=== PATIENT | female | born 1930 | race Caucasian/White ===

== ENCOUNTER 2017-01-10 10:50 | Inpatient (IN) | payer MEDICARE, OTHER ==
[2017-01-10] MEDS ORDERED: Sodium Chloride 0.9% 1000 ML 1,000 ML ONE (10:59)
[2017-01-10] MEDS ORDERED: Sodium Chloride 0.9% 1000 ML 1,000 ML IV STA (11:03)
[2017-01-10 11:23] LABS: INR 1.3 (0.8-3.0); PROTIME 14.4 SECONDS (9.95-12.35)
[2017-01-10 11:24] LABS: Mean Corpuscular Hemoglobin 31.5 pg (26-32); Mean Platelet Volume 10.3 fl (6-9.5); Platelet Count 132 K/mm3 (150-450); Red Blood Count 5.71 M/mm3 (4.1-5.4); Red Cell Distribution Width 15.7 % (11.5-14.0); White Blood Count 7.8 K/mm3 (4.0-10.5)
--- NOTE | 2017-01-10 11:25 | ERPHSYRPT ---
- History of Present Illness Time Seen by Provider: 01/10/17 10:58 Source: EMS, [facility] records Exam Limitations: clinical condition Patient Subjective Stated Complaint: pt arrived per ambulance for hypotension this morning, and altered mental status,,bs was 150 today, pt alert but is sleepy, she states she feels like shes fading away, pt is a DNR. Triage Nursing Assessment: pt alert and moaning which is normal for her, resp easy, chest clear, and soft,moves all ext Physician History: PATIENT WITH HISTORY OF DEMENTIA, CVA, HYPERTENSION, TYPE 2 DIABETES, CORONARY ARTERY DISEASE, AND CONGESTIVE HEART FAILURE WAS FOUND BY [facility] STAFF TRANSIENT LOSS OF CONSCIOUSNESS WITH LOW BLOOD PRESSURE AFTER RECEIVING HER MORNING HYPERTENSIVE MEDICATIONS. PATIENT DENIES CHEST PAIN, DYSPNEA OR HEADACHE. Timing/Duration: today Severity: moderate Character of Deficits: other (TRANSIENT UNRESPONSIVE) Baseline/Normal Cognition: alert but confused Current Cognition: alert but confused Associated Symptoms: confusion Allergies/Adverse Reactions: atorvastatin calcium [From Lipitor] Allergy (Severe, Verified 01/10/17 11:04) insulin aspart [From Novolog] Adverse Reaction (Severe, Verified 01/10/17 11:04) other Pt stated that her doctor advised her to only take Novolin. acetaminophen [From Tylenol] Adverse Reaction (Verified 01/10/17 11:04) ibuprofen Adverse Reaction (Verified 01/10/17 11:04) Home Medications: Aspirin [Aspirin EC] 81 mg PO HS 01/07/15 [History] Isosorbide Mononitrate 30 mg [Imdur 30 MG] 30 mg PO BID 01/07/15 [History] Levothyroxine Sodium 50 Mcg [Synthroid 50 Mcg] 50 mcg PO DAILY 01/07/15 [ History] Metoprolol Tartrate 25 mg [Lopressor 25MG Tab] 25 mg PO BID 01/07/15 [ History] Sennosides [Senna Laxative] 1 - 2 tab PO DAILY PRN 01/07/15 [History] NPH, Human Insulin Isophane [Humulin N] 25 unit SQ BREAKFAST 01/30/15 [History] NPH, Human Insulin Isophane [Humulin N] 27 units SQ HS 01/30/15 [History] Nitroglycerin 0.4 mg Tablet [Nitrostat 0.4 MG Tablet] 0.4 mg SL Q5MIN PRN MR X 3 PRN 06/20/15 [History] Furosemide 40 mg PO DAILY 10/02/15 [History] Potassium Chloride 10 Meq Tab* [Klor Con 10 MEQ] 20 meq PO TID 05/11/16 [ History] Hx Tetanus, Diphtheria Vaccination/Date Given: Yes Hx Influenza Vaccination/Date Given: Yes Hx Pneumococcal Vaccination/Date Given: Yes Immunizations Up to Date: Yes - Review of Systems Constitutional: Lethargy, Weakness, No Fever, No Chills Eyes: No Symptoms Ears, Nose, & Throat: No Symptoms Respiratory: No Symptoms, No Cough, No Dyspnea Cardiac: No Symptoms, No Chest Pain, No Edema, No Syncope Abdominal/Gastrointestinal: No Symptoms, No Abdominal Pain, No Nausea, No Vomiting, No Diarrhea Genitourinary Symptoms: No Symptoms, No Dysuria Musculoskeletal: No Symptoms, No Back Pain, No Neck Pain Skin: No Symptoms, No Rash Neurological: Lethargy, Other (ALTERED MENTAL STATUS), No Dizziness, No Focal Weakness, No Sensory Changes Psychological: No Symptoms Endocrine: No Symptoms All Other Systems: Reviewed and Negative - Past Medical History Pertinent Past Medical History: Yes Neurological History: Dementia, Stroke ENT History: Cataracts Cardiac History: Congestive Heart Failure, Coronary Artery Disease, Hypertension , Myocardial Infarction ([place]) Respiratory History: Bronchitis, Pneumonia Endocrine Medical History: Diabetes Type II, Hypothyroidism Musculoskeletal History: Arthritis, Fractures, Osteoarthritis GI Medical History: Gallbladder Disease History: No Pertinent History Psycho-Social History: Anxiety Female Reproductive Disorders: No Pertinent History Other Medical History: cardiac stent. HX LOW POTASSIUM AND LOW MAG - Past Surgical History Past Surgical History: Yes Neuro Surgical History: Other Cardiac: Cardiac Stent Respiratory: No Pertinent History Gastrointestinal: Cholecystectomy Genitourinary: No Pertinent History Musculoskeletal: Orthopedic Surgery Female Surgical History: No Pertinent History Other Surgical History: brain surgery - Social History Smoking Status: Never smoker Exposure to second hand smoke: No Drug Use: none Patient Lives Alone: No - Female History Hx Last Menstrual Period: post Hx Now: No - Nursing Vital Signs Nursing Vital Signs: Initial Vital Signs Temperature 97.0 F Temperature Source Oral Pulse Rate 52 Respiratory Rate 20 Blood Pressure [] 120/26 Pain Intensity 0 - Sara Coma Scale Best Eye Response (Sara): (4) open spontaneously Best Verbal Response ([facility]): (4) confused conversation Best Motor Response (Sara): (6) obeys commands [facility] Total: 14 - Physical Exam General Appearance: no apparent distress, lethargy (SLIGHT LETHARGIC) Eye Exam: bilateral eye: PERRL, EOMI Ears, Nose, Throat Exam: normal ENT inspection, moist mucous membranes Neck Exam: normal inspection, non-tender, supple Respiratory: normal breath sounds, lungs clear, airway intact, No respiratory distress Cardiovascular: regular rate/rhythm, bradycardia, No edema Gastrointestinal: soft, normal bowel sounds, No tenderness, No distention Back Exam: normal inspection Extremity Exam: normal inspection, No pedal edema Peripheral Pulses: carotid (R): 2+, carotid (L): 2+, femoral (R): 2+, femoral (L ): 2+, dorsalis-pedis (R): 2+, dorsalis-pedis (L): 2+ Mental Status: alert, 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: tongue midline Coordination/Gait: normal finger to nose DTR: bicep (R): 2+, bicep (L): 2+, tricep (R): 2+, tricep (L): 2+, knee (R): 2+ Skin Exam: normal color, warm, dry, No rash SpO2 Interpretation: normal SpO2: 99 Oxygen Delivery: Room Air - Course EKG Interpreted by Me: RATE, Sinus Rhythm, Sinus Anam, Left [place] Deviation - Radiology Exams Chest X-ray Interpretation: Discussed w/ radiologist (NONACUTE UNDERINFLATED CHEST) - CT Exams Head CT Interpretation: Discussed w/radiologist (KASHIF SENILE BRAIN) Ordered Tests: Active Orders 24 hr Category Date Time Status Bedrest ROUTINE Activity 01/10/17 13:36 Ordered Admission/Status Order ROUTINE Care 01/10/17 13:35 Ordered Call Admit Doctor for Orders ON ADMISSION Care 01/10/17 13:36 Ordered Oncology Nurse Navigator STAT Care 01/10/17 11:03 Active Cath [Catheter-[place]] STAT Care 01/10/17 11:16 Active Code Status Order ROUTINE Care 01/10/17 13:35 Ordered EKG-ER Only STAT Care 01/10/17 11:03 Active IV Care Q6H Care 01/10/17 13:35 Ordered IV Insertion STAT Care 01/10/17 11:03 Active IV Insertion-2nd Peripheral STAT Care 01/10/17 11:16 Active Neuro Checks Q4H Care 01/10/17 13:34 Ordered Oxygen-ED Only NASAL CANNULA 2 lpm Care 01/10/17 11:03 Active Pulse Oximetry (ED) STAT Care 01/10/17 11:03 Active Vital Signs Q4H Care 01/10/17 13:34 Ordered Cardiac Diet Diet 01/10/17 Dinner Ordered CHEST 1 VIEW (PORTABLE) Stat Exams 01/10/17 11:04 Completed HEAD WITHOUT CONTRAST [CT] Stat Exams 01/10/17 11:15 Completed BLOOD CULTURE Stat Lab 01/10/17 11:00 Received CBC W DIFF Stat Lab 01/10/17 11:00 Completed CMP Stat Lab 01/10/17 11:00 Completed MAGNESIUM Stat Lab 01/10/17 11:00 Completed Manual Differential NC Stat Lab 01/10/17 11:00 Completed NT PRO BNP Stat Lab 01/10/17 11:00 Completed PROTIME WITH INR Stat Lab 01/10/17 11:00 Completed TROPONIN Q3H Lab 01/10/17 11:00 Completed TROPONIN Q3H Lab 01/10/17 14:15 Ordered TROPONIN Q3H Lab 01/10/17 17:15 Ordered TROPONIN Q3H Lab 01/10/17 20:15 Ordered TROPONIN Q3H Lab 01/10/17 23:15 Ordered UA Stat Lab 01/10/17 13:23 Ordered UA Stat Lab 01/10/17 13:43 Ordered Oxygen NASAL CANNULA 2 lpm RT 01/10/17 13:34 Ordered Transfer Order Routine Transfer 01/10/17 13:34 Ordered Medication Summary Discontinued Medications Generic Name Dose Route Start Last Admin Trade Name Brightq PRN Reason Stop Dose Admin Calcium Chloride 1,000 mg 01/10/17 11:57 01/10/17 12:30 Calcium Chloride 10% 1000 Mg IV 01/10/17 11:58 Not Given STAT ONE Calcium Chloride Confirm 01/10/17 12:16 Calcium Chloride 10% 1000 Mg Administered 01/10/17 12:17 Dose 1,000 mg .ROUTE .STK-MED ONE Sodium Chloride Confirm 01/10/17 10:59 Sodium Chloride 0.9% 1000 Ml Administered 01/10/17 11:00 Dose 1,000 mls @ ud .ROUTE .STK-MED ONE Sodium Chloride 1,000 mls @ 999 mls/hr 01/10/17 11:03 01/10/17 11:16 Sodium Chloride 0.9% 1000 Ml IV 01/10/17 12:03 999 mls/hr .Q1H1M STA Administration Calcium Chloride 1,000 mg/ 60 mls @ 240 mls/hr 01/10/17 12:30 01/10/17 12:30 Sodium Chloride IV 01/10/17 12:44 240 mls/hr STAT ONE Administration Sodium Polystyrene Sulfonate 30 g 01/10/17 11:56 01/10/17 12:30 Kayexylate 15 Gm/60 Ml PO 01/10/17 11:57 30 g STAT ONE Administration Lab/Rad Data: Laboratory Result Diagrams 01/10/17 11:00 01/10/17 11:00 Laboratory Results 01/10/17 01/10/17 01/10/17 Range/Units 11:00 11:00 11:00 WBC (4.0-10.5) K/mm3 RBC (4.1-5.4) M/mm3 Hgb (12.0-16.0) gm/dl Hct (35-47) % MCV (78-100) fl MCH (26-32) pg MCHC (32-36) g/dl RDW (11.5-14.0) % Plt Count (150-450) K/mm3 MPV (6-9.5) fl Segmented Neutrophils (36.0-66.0) % Band Neutrophils (0.0-2.0) % Lymphocytes (Manual) (24-44) % Monocytes (Manual) (0.0-12.0) % Platelet Estimate (NORMAL) Poikilocytosis Anisocytosis INR 1.30 (0.8-3.0) Sodium 132 L (136-145) mEq/L Potassium 5.9 H (3.5-5.1) mEq/L Chloride 96 L (98-107) mEq/L Carbon Dioxide 25.5 (21-32) mEq/L Anion Gap 15.9 H (5-15) MEQ/L BUN 27 H (9-20) mg/dL Creatinine 3.15 H (0.55-1.30) mg/dl Estimated GFR 15 ML/MIN Glucose 171 H (70-110) MG/DL Calcium 9.8 (8.5-10.1) mg/dL Magnesium 2.3 (1.8-2.4) mg/dL Total Bilirubin 0.7 (0.2-1.0) mg/dL AST 36 (15-37) U/L ALT 21 (12-78) U/L Alkaline Phosphatase 70 (46-116) U/L Troponin I 0.030 (0.000-0.056) ng/ml NT-Pro-B Natriuret Pep 514 H (0-450) pg/ml Serum Total Protein 7.6 (6.4-8.2) gm/dL Albumin 3.7 (3.4-5.0) g/dL 01/10/17 Range/Units 11:00 WBC 7.8 (4.0-10.5) K/mm3 RBC 5.71 H (4.1-5.4) M/mm3 Hgb 18.0 H (12.0-16.0) gm/dl Hct 54.8 H (35-47) % MCV 96.0 (78-100) fl MCH 31.5 (26-32) pg MCHC 32.8 (32-36) g/dl RDW 15.7 H (11.5-14.0) % Plt Count 132 L (150-450) K/mm3 MPV 10.3 H (6-9.5) fl Segmented Neutrophils 72 H (36.0-66.0) % Band Neutrophils 1 (0.0-2.0) % Lymphocytes (Manual) 21 L (24-44) % Monocytes (Manual) 6 (0.0-12.0) % Platelet Estimate NORMAL (NORMAL) Poikilocytosis 1+ Anisocytosis 1+ INR (0.8-3.0) Sodium (136-145) mEq/L Potassium (3.5-5.1) mEq/L Chloride (98-107) mEq/L Carbon Dioxide (21-32) mEq/L Anion Gap (5-15) MEQ/L BUN (9-20) mg/dL Creatinine (0.55-1.30) mg/dl Estimated GFR ML/MIN Glucose (70-110) MG/DL Calcium (8.5-10.1) mg/dL Magnesium (1.8-2.4) mg/dL Total Bilirubin (0.2-1.0) mg/dL AST (15-37) U/L ALT (12-78) U/L Alkaline Phosphatase (46-116) U/L Troponin I (0.000-0.056) ng/ml NT-Pro-B Natriuret Pep (0-450) pg/ml Serum Total Protein (6.4-8.2) gm/dL Albumin (3.4-5.0) g/dL - Progress Progress Note: 01/10/17 11:28 PATIENT GIVEN BOLUS NORMAL 1 LITER OVER 1 HOUR FOR SPB 62/36, IMPROVED TO BP 90 /46, ADMINISTERED KAYEXYLATE 15GM ORALLY, AND CALCIUM CHLORIDE 1GM IVPB OVER 30MIN 01/10/17 12:25 01/10/17 12:28 Discussed with : Noman (DISCUSSED WITH DR MERCHANT AT 1330 FOR ADMISSION) - Departure Time of Disposition: 13:35 Departure Disposition: In-patient Admission Clinical Impression: HYPERKALEMIA, HYPOTENSION, DEHYDRATION, ALTERED MENTAL STATUS, URINARY TRACT INFECTION Condition: Stable Critical Care Time: No Referrals: MERRITT MERCHANT MD [Primary Care Provider] -
[2017-01-10 11:36] LABS: BAND 1 % (0.0-2.0); Total Cells Counted 100
[2017-01-10 11:37] LABS: ANISOCYTOSIS 1+; Platelet Estimate NORMAL (NORMAL); Poikilocytosis 1+
[2017-01-10 11:41] LABS: ALBUMIN 3.7 g/dL (3.4-5.0); ANION GAP 15.9 MEQ/L (5-15); BILIRUBIN,TOTAL 0.7 mg/dL (0.2-1.0); Carbon Dioxide 25.5 mEq/L (21-32); MAGNESIUM 2.3 mg/dL (1.8-2.4); Potassium 5.9 mEq/L (3.5-5.1); Total Protein 7.6 gm/dL (6.4-8.2)
[2017-01-10] MEDS ORDERED: Kayexylate 15 GM/60 ML PO ONE (11:56)
[2017-01-10] MEDS ORDERED: CALCIUM CHLORIDE 10% 1000 MG IV ONE (11:57)
--- NOTE | 2017-01-10 11:57 | XRAY ---
Indication: Cough. Comparison: November 17, 2016. Portable chest less inflated today again without focal infiltrate, consolidation, or large effusion. Heart within normal limits for AP portable technique. Bony thorax intact again with osteopenia, degenerative changes, and partially visualized left humeral hardware. Impression: Nonacute underinflated chest.
--- NOTE | 2017-01-10 12:04 | XRAY ---
Indication: Transient unresponsiveness. Multiple contiguous axial images obtained through the head without contrast. Comparison: July 19, 2015. Stable age-appropriate global atrophy and minimal periventricular degenerative micro-ischemia. No acute intracranial hemorrhage, abnormal extra-axial fluid collection, or mass effect. Fourth ventricle is midline without hydrocephalus. Kaminski-white matter differentiation maintained. Osseous structures intact. Visualized paranasal sinuses and mastoid air cells are clear. Impression: Stable nonacute senile brain. CTDI 67.60
[2017-01-10] MEDS ORDERED: CALCIUM CHLORIDE 10% 1000 MG ONE (12:16)
[2017-01-10] MEDS ORDERED: CALCIUM CHLORIDE IV ONE (12:30)
[2017-01-10] MEDS ORDERED: SODIUM CHLORIDE 0.9% IV ONE (12:30)
[2017-01-10] MEDS ORDERED: Sodium Chloride 0.9% 1000 ML 1,000 ML IV SCH (13:45)
[2017-01-10] MEDS ORDERED: ROCEPHIN 1 Gm-D5w 50 ml Bag** 50 ML IV ONE ×2 (13:46→13:47)
[2017-01-10 14:01] LABS: Collection Type CLEAN CATCH
[2017-01-10 14:02] LABS: Bacteria MODERATE /HPF (NEGATIVE); COMPLETE URINE MICROSCOPIC? YES; Epithelial Cells FEW /HPF (FEW)
[2017-01-10] MEDS: Sodium Chloride 0.9% 1000 ML 1,000 ML IV SCH (15:11)
--- NOTE | 2017-01-10 16:57 | PCM.HP ---
History of Present Illness - Chief Complaint Chief Complaint: AMS, hyperkalemia, hypotension, dehydration History of Present Illness: is a 86 year old female who was brought from [facility] this am for decreased blood pressure and altered mental status, she was apparently difficult to arouse. She reports she is chronically in pain and feels terrible all the time, she is very confused and paranoid at her baseline. she has no specific complaints, is conversant today. - Review of Systems Constitutional: No Fever, No Chills Respiratory: No Cough, No Short Of Breath Cardiac: No Chest Pain, No Edema, No Syncope Abdominal/Gastrointestinal: Abdominal Pain Skin: No Rash All Other Systems: Reviewed and Negative Medications & Allergies Home Medications: Home Medication List Aspirin [Aspirin EC] 81 mg PO DAILY 01/07/15 [History Confirmed 01/10/17] Isosorbide Mononitrate 30 mg [Imdur 30 MG] 30 mg PO BID 01/07/15 [History Confirmed 01/10/17] Levothyroxine Sodium 50 Mcg [Synthroid 50 Mcg] 50 mcg PO DAILY 01/07/15 [ History Confirmed 01/10/17] Metoprolol Tartrate 25 mg [Lopressor 25MG Tab] 25 mg PO BID 01/07/15 [ History Confirmed 01/10/17] NPH, Human Insulin Isophane [Humulin N] 27 unit SQ BID 01/30/15 [History Confirmed 01/10/17] Furosemide 40 mg PO DAILY 10/02/15 [History Confirmed 01/10/17] Potassium Chloride 10 Meq Tab* [Klor Con 10 MEQ] 30 meq PO DAILY 05/11/16 [ History Confirmed 01/10/17] Calcium Carbonate/Vitamin D3 [Calcium 600 + Vit D 400 Tablet] 1 mg PO BID [History Confirmed 01/10/17] Dextrose 4 gm Tablet [Dex4 Glucose 4 GM TABLET] 1 each PO DAILY PRN PRN [History Confirmed 01/10/17] Diclofenac Sodium Gel [Voltaren GEL] 100 gm TP QID 01/10/17 [History Confirmed 01/10/17] Docusate Sodium 100 mg [Colace 100 MG] 100 mg PO DAILY PRN PRN 01/10/17 [ History Confirmed 01/10/17] Glucagon 1 mg [GlucaGen 1 MG] 1 mg IJ DAILY PRN PRN 01/10/17 [History Confirmed 01/10/17] Magnesium Hydroxide 30 ml [Milk of Magnesia 30 ml] 30 ml PO DAILY PRN PRN 01/10/17 [History Confirmed 01/10/17] Na Phos,M-B/Na Phos,Di-Ba [Fleet Enema] 133 ml RC DAILY PRN PRN 01/10/17 [ History Confirmed 01/10/17] Nystatin Cream 30 gm [Nystop 30 gm Cream] 30 gm TP DAILY 01/10/17 [ History Confirmed 01/10/17] Omeprazole 20 MG [Prilosec 20 mg] 20 mg PO DAILY 01/10/17 [History Confirmed ] Potassium Chloride 10 Meq Tab* [Klor Con 10 MEQ] 20 meq PO BID 01/10/17 [ History Confirmed 01/10/17] Spironolactone 25 mg [Aldactone 25 MG] 50 mg PO DAILY 01/10/17 [History Confirmed 01/10/17] Triamcinolone 0.1% Cream [Kenalog 0.1% Cream 15 gm] 15 gm TP BID PRN 01/10 [History Confirmed 01/10/17] Triamterene/Hydrochlorothiazid [Maxzide 37.5 mg-25 mg Tablet] 1 each PO DAILY [History Confirmed 01/10/17] Allergies/Adverse Reactions: Allergies Allergy/AdvReac Type Severity Reaction Status Date / Time atorvastatin calcium Allergy Severe Verified 01/10/17 11:04 [From Lipitor] insulin aspart [From Novolog] AdvReac Severe other Verified 01/10/17 11:04 acetaminophen [From Tylenol] AdvReac Verified 01/10/17 11:04 ibuprofen AdvReac Verified 01/10/17 11:04 - Past Medical History Past Medical History: Yes Neurological History: Dementia, Stroke ENT History: Cataracts Cardiac History: Congestive Heart Failure, Coronary Artery Disease, Hypertension , Myocardial Infarction ([place]) Respiratory History: Bronchitis, CHF, Pneumonia Endocrine Medical History: Diabetes Type II, Hypothyroidism Musculoskelatal History: Arthritis, Fractures, Osteoarthritis GI Medical History: Gallbladder Disease History: No Pertinent History Pyscho-Social History: Anxiety Reproductive Disorders: No Pertinent History Comment: cardiac stent. HX LOW POTASSIUM AND LOW MAG - Female History Hx Last Menstrual Period: post Are you now?: No - Past Surgical History Past Surgical History: Yes Neuro Surgical History: Other Cardiac History: Cardiac Stent Respiratory Surgery: No Pertinent History GI Surgical History: Cholecystectomy Genitourinary Surgical Hx: No Pertinent History Musculskeletal Surgical Hx: Orthopedic Surgery Female Surgical History: No Pertinent History Other Surgical History: brain surgery - Social History Smoking Status: Never smoker Exposure to second hand smoke: No Alcohol: None Drug Use: none - Physical Exam Vital Signs: Vital Signs - 24 hr Temp Pulse Resp BP Pulse Ox 01/10/17 15:37 97.0 F 54 L 125/53 95 01/10/17 14:53 97.0 F 54 L 125/53 95 01/10/17 14:24 97.0 F 54 L 125/53 95 01/10/17 13:49 99 01/10/17 13:45 56 L 18 120/60 97 01/10/17 13:44 52 L 20 120/26 97 01/10/17 12:58 57 L 16 100/60 96 01/10/17 11:52 65 16 82/36 94 L 01/10/17 11:00 99 01/10/17 10:52 97.0 F 51 L 14 62/36 99 Oxygen-Last 24 hours O2 Percentage 2 Liters = 28% O2 Percentage 2 Liters = 28% O2 Percentage 2 Liters = 28% General Appearance: no apparent distress, alert Neurologic Exam: alert, No motor deficits Respiratory Exam: normal breath sounds Cardiovascular Exam: regular rate/rhythm, normal heart sounds, normal peripheral pulses Gastrointestinal/Abdomen Exam: soft, normal bowel sounds, No tenderness, No mass Extremity Exam: normal inspection, normal range of motion, pelvis stable Skin Exam: normal color, warm, dry, No rash Results - Labs Lab/Micro Results: Lab Results-Last 24 Hours 01/10/17 Range/Units 15:02 Troponin I 0.028 (0.000-0.056) ng/ml Assessment/Plan (1) Hypotension Current Visit: Yes Status: Acute Assessment & Plan: resolved at this time Code(s): I95.9 - HYPOTENSION, UNSPECIFIED (2) Altered mental status Current Visit: Yes Status: Acute Assessment & Plan: stable at this time Code(s): R41.82 - ALTERED MENTAL STATUS, UNSPECIFIED
[2017-01-10] MEDS ORDERED: Colace 100 MG PO PRN (18:05)
[2017-01-10] MEDS ORDERED: Kayexylate 15 GM/60 ML RC SCH (20:00)
[2017-01-10] MEDS: Kayexylate 15 GM/60 ML RC SCH (20:45)
[2017-01-10] MEDS: Voltaren GEL TP SCH (21:41)
[2017-01-11] MEDS: Sodium Chloride 0.9% 1000 ML 1,000 ML IV SCH ×2 (01:17→14:50)
[2017-01-11] MEDS ORDERED: Kayexylate 15 GM/60 ML PO SCH (05:00)
[2017-01-11] MEDS: Kayexylate 15 GM/60 ML RC SCH (05:20)
[2017-01-11 08:22] LABS: ANION GAP 18.8 MEQ/L (5-15); Carbon Dioxide 20.1 mEq/L (21-32); Potassium 5.6 mEq/L (3.5-5.1)
[2017-01-11] MEDS: Novolin N SQ SCH ×2 (08:33→17:03)
--- NOTE | 2017-01-11 08:40 | PCM.NOTE ---
Date and Time: 01/11/17 0835 Subjective Assessment: She says she feels "terrible," knows the month and year but confused about where she is. States she's never seen Dr. Tineo (he saw the pt yesterday). states she can't eat the fruit plate in front of her due to she can't chew. - Review of Systems Constitutional: No Fever Abdominal/Gastrointestinal: Abdominal Pain Objective Exam General Appearance: no apparent distress Neurologic Exam: alert, other (cooperates with some assistance) Skin Exam: normal color, warm, dry Respiratory Exam: normal breath sounds, lungs clear, No crackles/rales, No rhonchi, No wheezing Cardiovascular Exam: regular rate/rhythm, normal heart sounds, No murmur Gastrointestinal/Abdomen Exam: soft, normal bowel sounds, tenderness (throughout ), No guarding, No rebound Extremity Exam: No pedal edema, No swelling OBJECTIVE DATA Vital Signs: Vital Signs - 24 hr Temp Pulse Resp BP Pulse Ox 01/11/17 07:42 98.1 F 77 19 108/51 97 01/11/17 04:00 19 01/11/17 01:00 97.5 F 68 20 111/52 96 01/11/17 00:00 18 01/10/17 21:00 97.3 F 70 20 128/58 96 01/10/17 20:00 20 01/10/17 17:01 97.6 F 56 L 18 113/56 96 01/10/17 15:37 97.0 F 54 L 125/53 95 01/10/17 14:53 97.0 F 54 L 125/53 95 01/10/17 14:24 97.0 F 54 L 125/53 95 01/10/17 13:49 99 01/10/17 13:45 56 L 18 120/60 97 01/10/17 13:44 52 L 20 120/26 97 01/10/17 12:58 57 L 16 100/60 96 01/10/17 11:52 65 16 82/36 94 L 01/10/17 11:00 99 01/10/17 10:52 97.0 F 51 L 14 62/36 99 Oxygen-Last 24 hours O2 Percentage 2 Liters = 28% O2 Percentage 2 Liters = 28% O2 Percentage 2 Liters = 28% Pain Assessment - Last Documented Pain Intensity 0 Pain Scale Used FLACC Intake and Output: Intake & Output 01/08/17 01/09/17 01/10/17 01/11/17 11:59 11:59 11:59 11:59 Intake Total 1984 Balance 1984 Weight 79.651 kg Lab Results: Accuchecks Date 01/10/17 Time 22:00 Accucheck Value: 211 Lab Results-Last 24 Hours 01/10/17 01/10/17 01/10/17 Range/Units 15:02 17:26 20:13 Sodium (136-145) mEq/L Potassium (3.5-5.1) mEq/L Chloride (98-107) mEq/L Carbon Dioxide (21-32) mEq/L Anion Gap (5-15) MEQ/L BUN (9-20) mg/dL Creatinine (0.55-1.30) mg/dl Estimated GFR ML/MIN Glucose (70-110) MG/DL Calcium (8.5-10.1) mg/dL Troponin I 0.028 0.030 < 0.017 (0.000-0.056) ng/ml 01/10/17 01/11/17 01/11/17 Range/Units 23:17 05:13 05:15 Sodium 135 L (136-145) mEq/L Potassium 5.5 H 5.6 H (3.5-5.1) mEq/L Chloride 102 (98-107) mEq/L Carbon Dioxide 20.1 L (21-32) mEq/L Anion Gap 18.8 H (5-15) MEQ/L BUN 35 H (9-20) mg/dL Creatinine 3.42 H (0.55-1.30) mg/dl Estimated GFR 13 ML/MIN Glucose 201 H (70-110) MG/DL Calcium 9.2 (8.5-10.1) mg/dL Troponin I 0.018 (0.000-0.056) ng/ml Assessment/Plan (1) Renal failure Current Visit: Yes Status: Acute Assessment & Plan: in early 2015 her renal function was fairly normal, Cr nl with eGFR aroudn 50. Currently creatinine over 3 and eGFR 13. Will search for lab results later on in 2015 or early 2017. Will see if she's seen nephrology. Otherwise, will consult nephrology. (2) Altered mental status Current Visit: Yes Status: Resolved Assessment & Plan: she appears to be back to baseline for me. Code(s): R41.82 - ALTERED MENTAL STATUS, UNSPECIFIED (3) Hypotension Current Visit: Yes Status: Resolved Assessment & Plan: resolved. Code(s): I95.9 - HYPOTENSION, UNSPECIFIED (4) Abdominal pain Current Visit: No Status: Acute Assessment & Plan: She is quite tender for me. Will go ahead and check abd films followed by CT without contrast if necessary. Code(s): R10.9 - UNSPECIFIED ABDOMINAL PAIN (5) Diabetes Current Visit: No Status: Chronic Qualifiers: Diabetes mellitus type: type 1 Diabetes mellitus complication status: without complication Qualified Code(s): E10.9 - Type 1 diabetes mellitus without complications Assessment & Plan: continue accuchecks Code(s): E11.9 - TYPE 2 DIABETES MELLITUS WITHOUT COMPLICATIONS
[2017-01-11 09:15] LABS: BASOPHIL % 0.2 % (0.0-0.4); Eosinophil % 0.1 % (0.00-5.0); Granulocytes % 65.6 % (36.0-66.0); Lymphocytes % 24.7 % (24.0-44.0); Mean Cell Volume 97.9 fl (78-100); Mean Platelet Volume 10.6 fl (6-9.5); Monocytes % 9.4 % (0.0-12.0); Platelet Count 125 K/mm3 (150-450); Red Blood Count 5.21 M/mm3 (4.1-5.4); Red Cell Distribution Width 16.4 % (11.5-14.0); White Blood Count 10.2 K/mm3 (4.0-10.5)
[2017-01-11 09:16] LABS: Mean Corpuscular Hemoglobin 31.8 pg (26-32)
[2017-01-11] MEDS ORDERED: NYSTOP 30 GM CREAM TP SCH (10:00)
[2017-01-11] MEDS ORDERED: SYNTHROID 50 MCG PO SCH (10:00)
--- NOTE | 2017-01-11 10:03 | XRAY ---
Indication: Abdominal pain. Comparison: September 28, 2015. Supine and right lateral decubitus abdomen now demonstrates mild small and large bowel loops synchronous fluid leveling, ileus versus enterocolitis. No focal bowel dilatation, obstruction, or free air. Stable cholecystectomy clips and vascular calcifications including pelvic phleboliths. Remaining solid organs unremarkable. Osseous structures intact with again mild osteopenia and degenerative changes. Impression: Small and large bowel synchronous fluid leveling, ileus versus enterocolitis.
[2017-01-11] MEDS: ROCEPHIN 1 Gm-D5w 50 ml Bag** 50 ML IV SCH (11:25)
[2017-01-11] MEDS: Protonix 40MG Tablet PO SCH (11:55)
[2017-01-11] MEDS: ECOTRIN 81 MG PO SCH (11:56)
[2017-01-11] MEDS: SYNTHROID 50 MCG PO SCH (11:56)
[2017-01-11] MEDS: Voltaren GEL TP SCH ×4 (11:58→22:29)
[2017-01-12] MEDS: Sodium Chloride 0.9% 1000 ML 1,000 ML IV SCH ×2 (01:41→12:04)
[2017-01-12 05:54] LABS: Mean Cell Volume 99.1 fl (78-100); Mean Corpuscular Hemoglobin 31.7 pg (26-32); Platelet Count 97 K/mm3 (150-450); Red Blood Count 4.51 M/mm3 (4.1-5.4); Red Cell Distribution Width 16.6 % (11.5-14.0); White Blood Count 6.1 K/mm3 (4.0-10.5)
[2017-01-12 06:15] LABS: ALBUMIN 2.5 g/dL (3.4-5.0); ANION GAP 14.7 MEQ/L (5-15); BILIRUBIN,TOTAL 0.5 mg/dL (0.2-1.0); Carbon Dioxide 21.6 mEq/L (21-32); MAGNESIUM 1.9 mg/dL (1.8-2.4); PHOSPHOROUS 3.2 mg/dL (2.6-4.7); Potassium 3.8 mEq/L (3.5-5.1); Total Protein 5.4 gm/dL (6.4-8.2)
--- NOTE | 2017-01-12 08:27 | PCM.NOTE ---
Date and Time: 01/12/17823 Subjective Assessment: patient with no new complaints, abdominal pain is constant and she states she has had pain her whole life. she complains of the same pain at the [facility] as well, seems to be a chronic complaint. seems to be at her baseline cognitively Objective Exam General Appearance: no apparent distress Neurologic Exam: alert, No oriented x 3 Skin Exam: normal color, warm, dry Respiratory Exam: normal breath sounds, lungs clear, No respiratory distress Cardiovascular Exam: regular rate/rhythm, normal heart sounds Gastrointestinal/Abdomen Exam: soft, normal bowel sounds, tenderness (when distracted nontender and soft, normal bowel sounds) Extremity Exam: normal inspection, normal range of motion OBJECTIVE DATA Vital Signs: Vital Signs - 24 hr Temp Pulse Resp BP Pulse Ox 01/12/17 07:44 97.6 F 61 18 116/50 97 01/12/17 05:00 97.7 F 60 17 116/57 97 01/12/17 04:00 17 01/12/17 01:00 98.9 F 62 13 112/53 95 01/12/17 00:00 13 01/11/17 21:00 97.9 F 66 13 108/49 97 01/11/17 20:00 13 01/11/17 16:23 98.0 F 69 17 129/58 98 01/11/17 16:00 17 01/11/17 12:10 97.7 F 70 18 116/56 98 01/11/17 12:00 18 Pain Assessment - Last Documented Pain Intensity 0 Pain Scale Used [facility] Intake and Output: Intake & Output 01/09/17 01/10/17 01/11/17 01/12/17 11:59 11:59 11:59 11:59 Intake Total 1984 2733 Output Total 1000 Balance 1984 1733 Weight 79.651 kg Lab Results: Accuchecks Date 01/12/1701/11/17 Date 01/11/17 Date 01/11/17 Time 07:30 Time 22:00 Time 16:30 Time 11:30 Accucheck Value: 75 Accucheck Value: 107 Accucheck Value: 155 Accucheck Value: 140 Lab Results-Last 24 Hours 01/11/17 01/12/17 01/12/17 Range/Units 05:15 05:49 05:49 WBC 10.2 6.1 (4.0-10.5) K/mm3 RBC 5.21 4.51 (4.1-5.4) M/mm3 Hgb 16.6 H 14.3 (12.0-16.0) gm/dl Hct 51.0 H 44.7 (35-47) % MCV 97.9 99.1 (78-100) fl MCH 31.8 31.7 (26-32) pg MCHC 32.5 32.0 (32-36) g/dl RDW 16.4 H 16.6 H (11.5-14.0) % Plt Count 125 L 97 L (150-450) K/mm3 MPV 10.6 H 10.0 H (6-9.5) fl Gran % 65.6 (36.0-66.0) % Lymphocytes % 24.7 (24.0-44.0) % Monocytes % 9.4 (0.0-12.0) % Eosinophils % 0.1 (0.00-5.0) % Basophils % 0.2 (0.0-0.4) % Basophils # 0.02 (0-0.4) Sodium 141 (136-145) mEq/L Potassium 3.8 (3.5-5.1) mEq/L Chloride 108 H (98-107) mEq/L Carbon Dioxide 21.6 (21-32) mEq/L Anion Gap 14.7 (5-15) MEQ/L BUN 31 H (9-20) mg/dL Creatinine 2.78 H (0.55-1.30) mg/dl Estimated GFR 17 ML/MIN Glucose 88 (70-110) MG/DL Calcium 8.1 L (8.5-10.1) mg/dL Phosphorus 3.2 (2.6-4.7) mg/dL Magnesium 1.9 (1.8-2.4) mg/dL Total Bilirubin 0.5 (0.2-1.0) mg/dL AST 19 (15-37) U/L ALT 15 (12-78) U/L Alkaline Phosphatase 52 (46-116) U/L Serum Total Protein 5.4 L (6.4-8.2) gm/dL Albumin 2.5 L (3.4-5.0) g/dL Radiology Exams: Radiology Procedures Category Date Time Status ABDOMEN 2 VIEW Stat Exams 01/11/17 08:42 Completed ABDOMEN AND PELVIS W/0 CONTRAS [CT] Routine Exams 01/11/17 16:55 Taken KIDNEY [US] Routine Exams 01/12/17 08:00 Ordered Assessment/Plan (1) Renal failure Current Visit: Yes Status: Acute Assessment & Plan: slightly improved, to have renal u/s this am. appreciated nephrology consult input (2) Hypotension Current Visit: Yes Status: Resolved Assessment & Plan: resolved Code(s): I95.9 - HYPOTENSION, UNSPECIFIED (3) Altered mental status Current Visit: Yes Status: Resolved Assessment & Plan: seems to be at her baseline currently Code(s): R41.82 - ALTERED MENTAL STATUS, UNSPECIFIED
[2017-01-12] MEDS: Novolin N SQ SCH ×2 (08:31→16:20)
[2017-01-12 08:54] LABS: Sodium, Urine 81.7 MMOL
--- NOTE | 2017-01-12 09:04 | XRAY ---
Indication: Abdominal pain. Ileus. Multiple contiguous axial images obtained through the abdomen and pelvis without contrast as ordered. Comparison: January 07, 2015. Lung bases demonstrates again minimal bibasilar fibrosis/scarring and small hiatal hernia. Heart is not enlarged and again demonstrates mitral valve calcifications. Noncontrasted stomach and bowel loops appear nonobstructed. There is now mild uniformly fluid distended small and large bowel loops with synchronous fluid leveling, ileus versus enterocolitis. Normal appendix. Stable descending duodenal diverticulum and sigmoid diverticulosis. No free fluid/air. Again previous cholecystectomy, calcified uterine fibroids, and Perales catheter in situ. Remaining liver, pancreas, spleen, adrenal glands, kidneys, and ureters appear unremarkable for noncontrast exam. Remains moderate aortoiliac calcifications without AAA. Osseous structures intact again with mild/moderate degenerative changes throughout the spine. There is now 6 mm L4 spondylolisthesis without spondylolysis. Impression: 1. Mild fluid distended small and large bowel loops, ileus versus enterocolitis. 2. Again multilevel spinal degenerative changes with new L4 grade 1 spondylolisthesis without spondylolysis. 3. Stable hiatal hernia, duodenal diverticulum, sigmoid diverticulosis, calcified uterine fibroids, and Perales catheter in situ. Comment: Preliminary interpretation was made by [facility]. Above findings not reported and not felt to be critical. CT DI 23.44
--- NOTE | 2017-01-12 09:21 | CONS ---
CONSULT DATE: 01/11/2017 REASON FOR CONSULT: Acute renal failure, hyperkalemia. HISTORY: The patient is an 86 year-old lady who has multiple medical problems who is a resident of a penitentiary from [place]. She was brought last night/[facility] today for decreased blood pressure with systolic blood pressure in to 60's and 80's. She had altered mental status. She was apparently difficult to arouse. The patient complains that she is chronically in pain but she is very confused and paranoid. She does have some paranoia and confusion even now. She is also a very poor historian. She does not want to communicate much. No family members at bedside. There is no active vomiting or diarrhea. She complains of feeling dehydrated and failing to drink water. Denies any vomiting or diarrhea. Complains of some reflux, poorly defined abdomen discomfort. No ongoing fever. She has had some diarrhea but she also has received lots of Kayexalate. REVIEW OF SYSTEMS: She has a Perales catheter and is making some urine. She is able to eat and drink okay. Complains of feeling thirsty. No active vomiting. No fever. No diarrhea at present. Denies any chest pain or shortness of breath. Denies headache. PAST MEDICAL HISTORY: Hypertension. Hypothyroidism. Coronary artery disease status post stent placement. Diabetes mellitus type 2, congestive heart failure with abnormal ejection fraction. Myocardial infarction. Dementia. CVA. Osteoarthritis. Gastroesophageal reflux disease. PAST SURGICAL HISTORY: Coronary artery disease with stent placement. MEDICATIONS: Home medications included hydrochlorothiazide/triamterene hydrochlorothiazide, insulin, Spironolactone, potassium and many other medications all of which were reviewed. ALLERGIES: ATORVASTATIN, NOVOLOG INSULIN, IBUPROFEN, ACETAMINOPHEN. DETAILS OF THESE ALLERGIES UNCLEAR. SOCIAL HISTORY: She apparently lives in a penitentiary. She used to live with her daughter. She denies any tobacco use, alcohol use or substance abuse. FAMILY HISTORY: The patient has a history of kidney disease in the family. PHYSICAL EXAMINATION: The patient is awake, alert, somewhat oriented, not in any acute distress. Vital signs reviewed at bedside. HEENT: Head normocephalic, atraumatic. Dry oral mucosa. NECK: No JVD. CHEST: Clear. CVS: Normal sinus. ABDOMEN: Soft, nontender. EXTREMITIES: No edema on lower extremities. No peripheral edema. NEURO: Awake, alert, somewhat oriented, trying to answer questions appropriately, trying to follow commands, responds to painful stimuli upper extremities. Flat mood affect. SKIN: Warm and dry. LAB DATA AND TESTS: Yesterday BUN 27, creatinine 3.15. Sodium 132, potassium 5.9. Today BUN 35, creatinine 3.42, sodium 134, potassium 4.6, bicarb 20.1. A1C of 7. International normalized ratio 1.3. Abdomen x-ray small enlarged bowel, synchronous fluid leveling, ileus versus enterocolitis. CT report is pending of the abdomen. Head CT shows nonacute senile brain. Chest x-ray shows no acute infiltrate. Records from September 2016 in [place] were reviewed. Creatinine was 1.63 at that time. Labs from October 2015 at that time her creatinine was 1.1, SGOT 46, sodium 130, potassium 3.2. ASSESSMENT AND PLAN: An 86 year-old lady with multiple medical problems: 1) ACUTE RENAL FAILURE UNDERLYING CHRONIC KIDNEY DISEASE STAGE III. The patient has underlying chronic kidney disease, acute on chronic nephropathy. Acute renal failure likely secondary to a combination of dehydration and likely from low blood pressure and poor perfusion. She was on triamterene/hydrochlorothiazide and Spironolactone which may affect her volume status. She was on Furosemide. I will hold and avoid all diuretics and give her IV fluids which she is getting right now. I will order ultrasound to rule out any obstructive process or disease process. She does have underlying chronic kidney disease. I will check urine electrolytes including sodium and potassium and also evaluate for proteinuria including urine protein ratio. If the kidney function does not improve I will order additional connective tissue work up which seems less likely to be the cause. I recommend continue IV fluids, monitoring, labs, renal functions, fluid closely, and all medications. 2) HYPOTENSION: She recently had hypotension. She may have become dehydrated. I recommend stopping and avoiding antihypertensive and diuretics. She will be on IV fluids. Her blood pressure is improving and will monitor the blood pressure closely. 3) HYPERKALEMIA: Likely secondary to a combination of acute renal failure, potassium pills, Spironolactone, triamterene. Potassium pills have been stopped. She is getting IV fluids and she received Kayexalate. Her potassium should improve and I will monitor it closely. 4) DIABETES MELLITUS TYPE 2. 5) HYPOTHYROIDISM. 6) DEHYDRATION. 7) DEMENTIA WITH ALTERED MENTAL STATUS. 8) URINARY TRACT INFECTION. Thank you for the consultation on this patient. Please do not hesitate to contact me if you have any questions.
[2017-01-12 10:01] LABS: Bacteria FEW /HPF (NEGATIVE); COMPLETE URINE MICROSCOPIC? YES; Collection Type VOID; Epithelial Cells MODERATE /HPF (FEW); Ph 5.5 (5-6)
[2017-01-12] MEDS: Protonix 40MG Tablet PO SCH (10:54)
[2017-01-12] MEDS: ECOTRIN 81 MG PO SCH (10:54)
[2017-01-12] MEDS: SYNTHROID 50 MCG PO SCH (10:54)
[2017-01-12] MEDS: ROCEPHIN 1 Gm-D5w 50 ml Bag** 50 ML IV SCH (10:54)
[2017-01-12] MEDS: Voltaren GEL TP SCH ×4 (10:57→21:24)
[2017-01-12] MEDS: NYSTOP 15 GM CREAM TOP SCH (10:59)
--- NOTE | 2017-01-12 14:42 | XRAY ---
Indication: Poor renal function. Two-dimensional renal sonogram performed. Comparison: None Both kidneys normal in reniform shape with the right kidney measuring 6.8 x 3.9 x 3.7 cm and the left measuring 7.8 x 4.8 x 4.3 cm. No suspicious solid/cystic mass, hydronephrosis, or perinephric fluid. Cortical medullary differentiation preserved without cortical thinning. Perales catheter empties the bladder. Impression: Bilaterally small kidneys. Remaining renal sonogram negative.
[2017-01-13] MEDS: Sodium Chloride 0.9% 1000 ML 1,000 ML IV SCH (05:00)
[2017-01-13 06:08] LABS: Mean Cell Volume 99.3 fl (78-100); Mean Platelet Volume 10.1 fl (6-9.5); Platelet Count 89 K/mm3 (150-450); Red Blood Count 4.41 M/mm3 (4.1-5.4); Red Cell Distribution Width 15.9 % (11.5-14.0); White Blood Count 6.1 K/mm3 (4.0-10.5)
[2017-01-13 06:23] LABS: ALBUMIN 2.5 g/dL (3.4-5.0); ANION GAP 13.4 MEQ/L (5-15); BILIRUBIN,TOTAL 0.3 mg/dL (0.2-1.0); Carbon Dioxide 24.1 mEq/L (21-32); Potassium 3.8 mEq/L (3.5-5.1); Total Protein 5.1 gm/dL (6.4-8.2)
[2017-01-13 07:00] LABS: ATYPICAL LYMPHS 1 %; Eosinophil 2 % (0.00-3.0); Total Cells Counted 100
[2017-01-13 07:02] LABS: Platelet Estimate DECREASED (NORMAL)
[2017-01-13] MEDS: Novolin N SQ SCH ×2 (07:42→16:49)
--- NOTE | 2017-01-13 08:11 | PCM.NOTE ---
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 Objective Exam General Appearance: no apparent distress Neurologic Exam: No oriented x 3 Skin Exam: normal color, warm, dry Respiratory Exam: normal breath sounds, lungs clear, No respiratory distress Cardiovascular Exam: regular rate/rhythm, normal heart sounds Gastrointestinal/Abdomen Exam: soft, No tenderness, No mass Extremity Exam: normal inspection, normal range of motion OBJECTIVE DATA Vital Signs: Vital Signs - 24 hr Temp Pulse Resp BP Pulse Ox 01/13/17 07:00 97.6 F 64 19 143/63 100 01/13/17 04:00 18 01/13/17 03:00 98.1 F 69 15 146/60 93 L 01/13/17 00:00 15 01/12/17 23:00 98.9 F 74 14 129/58 94 L 01/12/17 20:00 15 01/12/17 19:00 97.7 F 74 15 111/53 96 01/12/17 16:00 18 01/12/17 15:00 98.0 F 72 18 106/51 96 01/12/17 12:00 18 01/12/17 11:00 97.8 F 60 18 99/50 94 L Pain Assessment - Last Documented Pain Intensity 10 Pain Scale Used 0-10 Pain Scale Intake and Output: Intake & Output 01/10/17 01/11/17 01/12/17 01/13/17 11:59 11:59 11:59 11:59 Intake Total 1984 6976 9 Output Total 1000 550 Balance 1984 1733 1489 Weight 79.651 kg Lab Results: Accuchecks Date 01/12/1701/12/1701/12/17 Time 16:16 Time 11:47 Time 09:47 Accucheck Value: 122 Accucheck Value: 144 Accucheck Value: 89 Accucheck Value: 79 Lab Results-Last 24 Hours 01/11/17 01/11/17 01/12/17 Range/Units 06:00 06:00 05:49 WBC 6.1 (4.0-10.5) K/mm3 RBC 4.51 (4.1-5.4) M/mm3 Hgb 14.3 (12.0-16.0) gm/dl Hct 44.7 (35-47) % MCV 99.1 (78-100) fl MCH 31.7 (26-32) pg MCHC 32.0 (32-36) g/dl RDW 16.6 H (11.5-14.0) % Plt Count 97 L (150-450) K/mm3 MPV 10.0 H (6-9.5) fl Segmented Neutrophils (36.0-66.0) % Lymphocytes (Manual) (24-44) % Monocytes (Manual) (0.0-12.0) % Eosinophils (Manual) (0.00-3.0) % Differential Comment Atypical Lymphocytes % Platelet Estimate (NORMAL) Peripher Smr Path Cons Pending Sodium (136-145) mEq/L Potassium (3.5-5.1) mEq/L Chloride (98-107) mEq/L Carbon Dioxide (21-32) mEq/L Anion Gap (5-15) MEQ/L BUN (9-20) mg/dL Creatinine (0.55-1.30) mg/dl Estimated GFR ML/MIN Glucose (70-110) MG/DL Calcium (8.5-10.1) mg/dL Total Bilirubin (0.2-1.0) mg/dL AST (15-37) U/L ALT (12-78) U/L Alkaline Phosphatase (46-116) U/L Serum Total Protein (6.4-8.2) gm/dL Albumin (3.4-5.0) g/dL Ur Collection Type Cancelled Urine Color Cancelled Urine Appearance Cancelled Urine pH Cancelled Ur Specific [place] Cancelled Urine Protein Cancelled Urine Glucose (UA) Cancelled Urine Ketones Cancelled Urine Nitrite Cancelled Urine Bilirubin Cancelled Urine Urobilinogen Cancelled Urine WBC (Auto) Cancelled Urine RBC (Auto) Cancelled Urine Microscopic RBC (0-2) /HPF Urine Microscopic WBC (0-5) /HPF Ur Epithelial Cells (FEW) /HPF Urine Bacteria (NEGATIVE) /HPF Ur Random Creatinine 198.80 H (30-125) MG/DL U Random Total Protein 33.5 mg/dL Urine Sodium 81.7 MMOL Specimen Received Cancelled 01/12/17 01/12/17 01/12/17 Range/Units 06:00 10:00 10:00 WBC (4.0-10.5) K/mm3 RBC (4.1-5.4) M/mm3 Hgb (12.0-16.0) gm/dl Hct (35-47) % MCV (78-100) fl MCH (26-32) pg MCHC (32-36) g/dl RDW (11.5-14.0) % Plt Count (150-450) K/mm3 MPV (6-9.5) fl Segmented Neutrophils (36.0-66.0) % Lymphocytes (Manual) (24-44) % Monocytes (Manual) (0.0-12.0) % Eosinophils (Manual) (0.00-3.0) % Differential Comment Atypical Lymphocytes % Platelet Estimate (NORMAL) Peripher Smr Path Cons Sodium (136-145) mEq/L Potassium (3.5-5.1) mEq/L Chloride (98-107) mEq/L Carbon Dioxide (21-32) mEq/L Anion Gap (5-15) MEQ/L BUN (9-20) mg/dL Creatinine (0.55-1.30) mg/dl Estimated GFR ML/MIN Glucose (70-110) MG/DL Calcium (8.5-10.1) mg/dL Total Bilirubin (0.2-1.0) mg/dL AST (15-37) U/L ALT (12-78) U/L Alkaline Phosphatase (46-116) U/L Serum Total Protein (6.4-8.2) gm/dL Albumin (3.4-5.0) g/dL Ur Collection Type VOID Urine Color YELLOW Urine Appearance SLIGHTLY CLOUDY Urine pH 5.5 Ur Specific [place] 1.020 Urine Protein TRACE Urine Glucose (UA) NEGATIVE Urine Ketones NEGATIVE Urine Nitrite NEGATIVE Urine Bilirubin NEGATIVE Urine Urobilinogen 0.2 Urine WBC (Auto) SMALL Urine RBC (Auto) LARGE Urine Microscopic RBC 50-100 (0-2) /HPF Urine Microscopic WBC 10-15 (0-5) /HPF Ur Epithelial Cells MODERATE (FEW) /HPF Urine Bacteria FEW (NEGATIVE) /HPF Ur Random Creatinine 200.15 H (30-125) MG/DL U Random Total Protein 36.4 mg/dL Urine Sodium MMOL Specimen Received 01/12/17 0600 01/13/17 01/13/17 Range/Units 05:25 05:25 WBC 6.1 (4.0-10.5) K/mm3 RBC 4.41 (4.1-5.4) M/mm3 Hgb 14.1 (12.0-16.0) gm/dl Hct 43.8 (35-47) % MCV 99.3 (78-100) fl MCH 32.0 (26-32) pg MCHC 32.2 (32-36) g/dl RDW 15.9 H (11.5-14.0) % Plt Count 89 L (150-450) K/mm3 MPV 10.1 H (6-9.5) fl Segmented Neutrophils 60 (36.0-66.0) % Lymphocytes (Manual) 32 (24-44) % Monocytes (Manual) 5 (0.0-12.0) % Eosinophils (Manual) 2 (0.00-3.0) % Differential Comment NORMAL Atypical Lymphocytes 1 % Platelet Estimate DECREASED (NORMAL) Peripher Smr Path Cons Sodium 143 (136-145) mEq/L Potassium 3.8 (3.5-5.1) mEq/L Chloride 109 H (98-107) mEq/L Carbon Dioxide 24.1 (21-32) mEq/L Anion Gap 13.4 (5-15) MEQ/L BUN 27 H (9-20) mg/dL Creatinine 2.20 H (0.55-1.30) mg/dl Estimated GFR 22 ML/MIN Glucose 59 L (70-110) MG/DL Calcium 7.9 L (8.5-10.1) mg/dL Total Bilirubin 0.3 (0.2-1.0) mg/dL AST 21 (15-37) U/L ALT 13 (12-78) U/L Alkaline Phosphatase 51 (46-116) U/L Serum Total Protein 5.1 L (6.4-8.2) gm/dL Albumin 2.5 L (3.4-5.0) g/dL Ur Collection Type Urine Color Urine Appearance Urine pH Ur Specific [place] Urine Protein Urine Glucose (UA) Urine Ketones Urine Nitrite Urine Bilirubin Urine Urobilinogen Urine WBC (Auto) Urine RBC (Auto) Urine Microscopic RBC (0-2) /HPF Urine Microscopic WBC (0-5) /HPF Ur Epithelial Cells (FEW) /HPF Urine Bacteria (NEGATIVE) /HPF Ur Random Creatinine (30-125) MG/DL U Random Total Protein mg/dL Urine Sodium MMOL Specimen Received Radiology Exams: Radiology Procedures Category Date Time Status ABDOMEN 2 VIEW Stat Exams 01/11/17 08:42 Completed ABDOMEN AND PELVIS W/0 CONTRAS [CT] Routine Exams 01/11/17 16:55 Completed KIDNEY [US] Routine Exams 01/12/17 08:00 Completed Assessment/Plan (1) Renal failure Current Visit: Yes Status: Acute Assessment & Plan: improving, will repeat levels tomorrow, likely back to [place] tomorrow. (2) Hypotension Current Visit: Yes Status: Resolved Assessment & Plan: resolved, patient normotensive off of all bp meds and diuretics Code(s): I95.9 - HYPOTENSION, UNSPECIFIED (3) Altered mental status Current Visit: Yes Status: Resolved Assessment & Plan: at her baseline Code(s): R41.82 - ALTERED MENTAL STATUS, UNSPECIFIED
[2017-01-13] MEDS: ROCEPHIN 1 Gm-D5w 50 ml Bag** 50 ML IV SCH (08:29)
[2017-01-13] MEDS: Protonix 40MG Tablet PO SCH (08:29)
[2017-01-13] MEDS: SYNTHROID 50 MCG PO SCH (08:29)
[2017-01-13] MEDS: ECOTRIN 81 MG PO SCH (08:29)
[2017-01-13] MEDS: NYSTOP 15 GM CREAM TOP SCH (08:31)
[2017-01-13] MEDS: Voltaren GEL TP SCH ×4 (08:32→22:46)
[2017-01-14] MEDS: Sodium Chloride 0.9% 1000 ML 1,000 ML IV SCH (02:38)
[2017-01-14 05:47] LABS: Mean Cell Volume 97.4 fl (78-100); Mean Corpuscular Hemoglobin 32.1 pg (26-32); Mean Platelet Volume 10.2 fl (6-9.5); Platelet Count 90 K/mm3 (150-450); Red Blood Count 4.24 M/mm3 (4.1-5.4); Red Cell Distribution Width 15.3 % (11.5-14.0); White Blood Count 5.9 K/mm3 (4.0-10.5)
[2017-01-14 06:06] LABS: ALBUMIN 2.2 g/dL (3.4-5.0); ANION GAP 12.9 MEQ/L (5-15); BILIRUBIN,TOTAL 0.3 mg/dL (0.2-1.0); Carbon Dioxide 23.7 mEq/L (21-32); Potassium 3.4 mEq/L (3.5-5.1)
[2017-01-14 07:06] LABS: BAND 6 % (0.0-2.0); Basophil 1 % (0.0-1.0); Metamyelocyte 1 %; Total Cells Counted 100
[2017-01-14 07:07] LABS: ANISOCYTOSIS 1+; Platelet Estimate DECREASED (NORMAL)
[2017-01-14 07:28] VITALS: BP 133/62; PULSE 56; O2SAT 95
--- NOTE | 2017-01-14 08:23 | PCM.DS ---
Discharge Summary Date of Admission: 01/10/17 14:12 Admitting Physician: MERRITT MERCHANT Consults: Consults on Case 01/11/17 08:42 Consult Nephrology ROUTINE Primary Care Provider: MERRITT MERCHANT Allergies Allergies atorvastatin calcium [From Lipitor] Allergy (Severe, Verified 01/10/17 11:04) insulin aspart [From Novolog] Adverse Reaction (Severe, Verified 01/10/17 11:04) other Pt stated that her doctor advised her to only take Novolin. acetaminophen [From Tylenol] Adverse Reaction (Verified 01/10/17 11:04) ibuprofen Adverse Reaction (Verified 01/10/17 11:04) Hospital Summary - Hospital Course Hospital Course: patient was admitted with altered mental status, acute renal failure, hypotension. all diuretics and bp meds were held, nephrology saw patient and kidney function has improved dramatically during her stay. she is paranoid and complains of abdominal pain chronically which is her baseline - Vitals & Intake/Output Vital Signs: Vital Signs Temperature 97.6 F 01/14/17 07:28 Pulse Rate 56 L 01/14/17 07:28 Respiratory Rate 01/14/17 07:28 Blood Pressure 133/62 01/14/17 07:28 O2 Sat by Pulse Oximetry 95 01/14/17 07:28 Oxygen-Last Documented O2 Percentage 2 Liters = 28% Intake & Output: Intake & Output 01/11/17 01/12/17 01/13/17 01/14/17 11:59 11:59 11:59 11:59 Intake Total 1984 0133 4439 1750 Output Total 1857 384 0124 Balance 1984 1733 1929 750 Weight 79.651 kg 79.651 kg - Lab Result Diagrams: 01/14/17 05:39 01/14/17 05:39 Lab Results-Last 24 Hrs: Accuchecks Accucheck Value: 165 Accucheck Value: 220 Accucheck Value: 174 Lab Results-Last 24 Hours 01/12/17 01/14/17 01/14/17 Range/Units 10:00 05:39 05:39 WBC 5.9 (4.0-10.5) K/mm3 RBC 4.24 (4.1-5.4) M/mm3 Hgb 13.6 (12.0-16.0) gm/dl Hct 41.3 (35-47) % MCV 97.4 (78-100) fl MCH 32.1 H (26-32) pg MCHC 32.9 (32-36) g/dl RDW 15.3 H (11.5-14.0) % Plt Count 90 L (150-450) K/mm3 MPV 10.2 H (6-9.5) fl Segmented Neutrophils 65 (36.0-66.0) % Band Neutrophils 6 H (0.0-2.0) % Lymphocytes (Manual) 21 L (24-44) % Monocytes (Manual) 6 (0.0-12.0) % Basophils (Manual) 1 (0.0-1.0) % Metamyelocytes 1 % Differential Comment ABNORMAL Platelet Estimate DECREASED (NORMAL) Anisocytosis 1+ Sodium 141 (136-145) mEq/L Potassium 3.4 L (3.5-5.1) mEq/L Chloride 108 H (98-107) mEq/L Carbon Dioxide 23.7 (21-32) mEq/L Anion Gap 12.9 (5-15) MEQ/L BUN 18 (9-20) mg/dL Creatinine 1.76 H (0.55-1.30) mg/dl Estimated GFR 29 ML/MIN Glucose 91 (70-110) MG/DL Calcium 8.0 L (8.5-10.1) mg/dL Total Bilirubin 0.3 (0.2-1.0) mg/dL AST 22 (15-37) U/L ALT 10 L (12-78) U/L Alkaline Phosphatase 51 (46-116) U/L Serum Total Protein 5.0 L (6.4-8.2) gm/dL Albumin 2.2 L (3.4-5.0) g/dL Ur Random Urea Nitrogn 648 mg/dL Micro Results-Entire Visit: Microbiology 01/11/17 06:00 Urine Culture - Final Urine, Indwelling Catheter MIXED AZIZA; 3 OR MORE TYPES. NO PREDOMINANT ORGANISM. NO FURTHER WORKUP. PLEASE RESUBMIT IF CLINICALLY INDICATED. Accuchecks Accucheck Value: 165 Accucheck Value: 220 Accucheck Value: 174 - Radiology Exams Ordered Rad Exams-Entire Visit: Radiology Procedures Category Date Time Status KIDNEY [US] Routine Exams 01/12/17 08:00 Completed - Procedures and Test Procedures and Tests throughout Hospitalization: Therapy Orders & Screens 01/10/17 14:56 ST Screen per Nursing Assess once Comment: Protocol Order Physician Instructions: Greater than [address] Admission Screening Reason For Exam: Triggered on Admission Diagnosis: AMS, hyperkalemia, hypotension, dehydration CVA/Dyshpagia/Aphasia: No Cognitive Deficits: No Dehydration/Nutrition Deficit: Yes Reflux: No Oral-Motor Difficulties: No Pneumonia: No Custodial Resident: Yes Total Points: 10 Discharge Exam General Appearance: no apparent distress, alert Neurologic Exam: alert Skin Exam: normal color, warm, dry Respiratory Exam: normal breath sounds, lungs clear, No respiratory distress Cardiovascular Exam: regular rate/rhythm, normal heart sounds Gastrointestinal/Abdomen Exam: soft, No tenderness, No mass Final Diagnosis/Problem List - Final Discharge Diagnosis/Problem (1) Renal failure Current Visit: Yes Status: Acute Assessment & Plan: much improved at this time. (2) Hypotension Current Visit: Yes Status: Resolved (3) Altered mental status Current Visit: Yes Status: Resolved - Discharge Disposition: Home, Self-Care Condition: Stable Prescriptions: Continue Aspirin [Aspirin EC] 81 mg PO DAILY Levothyroxine Sodium 50 Mcg [Synthroid 50 Mcg] 50 mcg PO DAILY Metoprolol Tartrate 25 mg [Lopressor 25MG Tab] 25 mg PO BID NPH, Human Insulin Isophane [Humulin N] 27 unit SQ BID Nystatin Cream 30 gm [Nystop 30 gm Cream] 30 gm TP DAILY Diclofenac Sodium Gel [Voltaren GEL] 100 gm TP QID Glucagon 1 mg [GlucaGen 1 MG] 1 mg IJ DAILY PRN PRN PRN Reason: Hypoglycemia Dextrose 4 gm Tablet [Dex4 Glucose 4 GM TABLET] 1 each PO DAILY PRN PRN PRN Reason: LOW GLUCOSE Magnesium Hydroxide 30 ml [Milk of Magnesia 30 ml] 30 ml PO DAILY PRN PRN PRN Reason: Constipation Na Phos,M-B/Na Phos,Di-Ba [Fleet Enema] 133 ml RC DAILY PRN PRN PRN Reason: Constipation Docusate Sodium 100 mg [Colace 100 MG] 100 mg PO DAILY PRN PRN PRN Reason: Constipation Calcium Carbonate/Vitamin D3 [Calcium 600 + Vit D 400 Tablet] 1 mg PO BID Omeprazole 20 MG [Prilosec 20 mg] 20 mg PO DAILY Triamcinolone 0.1% Cream [Kenalog 0.1% Cream 15 gm] 15 gm TP BID PRN Discontinued Isosorbide Mononitrate 30 mg [Imdur 30 MG] 30 mg PO BID Furosemide 40 mg PO DAILY Potassium Chloride 10 Meq Tab* [Klor Con 10 MEQ] 30 meq PO DAILY Potassium Chloride 10 Meq Tab* [Klor Con 10 MEQ] 20 meq PO BID Triamterene/Hydrochlorothiazid [Maxzide 37.5 mg-25 mg Tablet] 1 each PO DAILY Spironolactone 25 mg [Aldactone 25 MG] 50 mg PO DAILY Additional Instructions: see discharge med list for changes. draw cbc, cmp and magnesium level on 01/19/17 Follow up with: MERRITT MERCHANT MD [Primary Care Provider] -
[2017-01-14] MEDS: ECOTRIN 81 MG PO SCH (09:10)
[2017-01-14] MEDS: Protonix 40MG Tablet PO SCH (09:10)
[2017-01-14] MEDS: ROCEPHIN 1 Gm-D5w 50 ml Bag** 50 ML IV SCH (09:10)
[2017-01-14] MEDS: Voltaren GEL TP SCH (09:11)
[2017-01-14] MEDS: SYNTHROID 50 MCG PO SCH (09:11)
[2017-01-14] MEDS: Novolin N SQ SCH (09:12)
[2017-01-14] MEDS: NYSTOP 15 GM CREAM TOP SCH (09:12)
== END 2017-01-14 11:00 | DRG 683 ==
LOC: ED 10:50 → MED SURG 14:12
PROVIDERS: ADMIT Family Medicine; ATTEND Family Medicine
DX: N17.9 Acute kidney failure, unspecified (principal); N39.0 Urinary tract infection, site not specified; I95.9 Hypotension, unspecified; R41.82 Altered mental status, unspecified; E87.5 Hyperkalemia; E86.0 Dehydration; I12.9 Hypertensive chronic kidney disease with stage 1 through stage 4 chronic kidney disease, or unspecified chronic kidney disease; N18.3 Chronic kidney disease, stage 3 (moderate); E11.9 Type 2 diabetes mellitus without complications; E03.9 Hypothyroidism, unspecified; I25.10 Atherosclerotic heart disease of native coronary artery without angina pectoris; I50.9 Heart failure, unspecified; K21.9 Gastro-esophageal reflux disease without esophagitis; F03.90 Unspecified dementia, unspecified severity, without behavioral disturbance, psychotic disturbance, mood disturbance, and anxiety; I25.2 Old myocardial infarction; Z86.73 Personal history of transient ischemic attack (TIA), and cerebral infarction without residual deficits; Z79.899 Other long term (current) drug therapy; Z98.61 Coronary angioplasty status; Z79.4 Long term (current) use of insulin
CPT/HCPCS: 36000; 36415; 51702; 70450; 71010; 74020; 74176; 76770; 80048; 80053; 81000; 82570; 82962; 83010; 83036; 83615; 83735; 83880; 84100; 84132; 84156; 84300; 84484; 84540; 85025; 85027; 85060; 85610; 87040; 87086; 93005; 93041; 96360; 96361; 96365; 99285; J0696; A9270-GY